=== PATIENT | female | born 1955 | race Caucasian/White ===

== ENCOUNTER 2017-03-01 10:17 | Emergency (ER) | payer BC | END 2017-03-01 11:09 | disposition home or self-care (01) | LOC: ER 10:17 | DX: K12.1 Other forms of stomatitis (principal); R05 Cough; F32.9 Major depressive disorder, single episode, unspecified; I10 Essential (primary) hypertension; F17.210 Nicotine dependence, cigarettes, uncomplicated; Z79.899 Other long term (current) drug therapy ==